=== PATIENT | female | born 2000 | race Caucasian/White ===

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

== ENCOUNTER 2023-02-11 03:06 | Inpatient (IN) | payer OTHER ==
[2023-02-11] MEDS ORDERED: METHYLERGONOVINE 0.2 MG/ML 1 ML AMP IM PRN (03:49)
[2023-02-11] MEDS ORDERED: miSOPROStoL 200 MCG TAB PO PRN (03:49)
[2023-02-11] MEDS ORDERED: OXYTOCIN 10 UNIT/ML 1 ML VIAL IM PRN (03:49)
[2023-02-11] MEDS ORDERED: TERBUTALINE 1 MG/ML VIAL SQ PRN (03:49)
[2023-02-11] MEDS ORDERED: CARBOPROST TROMETHAMINE 250 MCG/ML 1 ML AMP IM PRN (03:49)
[2023-02-11] MEDS ORDERED: TRANEXAMIC ACID IN NACL,ISO-OS 1,000 MG in EMPTY BAG 1 BAG IV PRN (03:49)
[2023-02-11] MEDS ORDERED: LIDOCAINE 0.5% (PF) 5 MG/ML (50 ML SDV) SQ PRN (03:49)
[2023-02-11] MEDS ORDERED: AMPICILLIN 2,000 MG in SODIUM CHLORIDE 0.9% 100 ML IVPB ONE (04:00)
[2023-02-11] MEDS ORDERED: OXYTOCIN 30 UNITS/500 ML NS 30 UNIT in SALINE 1 500ML.BAG IV SCH (04:00)
[2023-02-11 04:23] LABS: Basophils % (A) 0 %; Eosinophils # (A) 0.2 k/uL (0-0.7); Eosinophils % (A) 2 %; HCT 36.1 % (34.0-46.0); HGB 12.4 gm/dL (11.4-16.0); Lymphocytes # (A) 2.1 k/uL (1.0-4.8); Lymphocytes % (A) 19 %; MCH 32.4 pg (25.0-35.0); MCHC 34.3 g/dL (31.0-37.0); MCV 94.3 fL (80.0-100.0); Mean Platelet Volume 8.6; Monocytes # (A) 0.4 k/uL (0-1.0); Monocytes % (A) 3 %; Neutrophils # (A) 8.4 k/uL (1.3-7.7); Neutrophils % (A) 74 %; Platelet Count 252 k/uL (150-450); RBC 3.83 m/uL (3.80-5.40); WBC 11.3 k/uL (3.8-10.6)
[2023-02-11] MEDS: LACTATED RINGERS 1,000 ML IV SCH ×2 (04:23→06:31)
[2023-02-11] MEDS ORDERED: fentaNYL (PF) 50 MCG/ML 5 ML AMP ONE (06:50)
[2023-02-11] MEDS ORDERED: SODIUM CHLORIDE 0.9% 100 ML BAG ONE (06:50)
[2023-02-11] MEDS ORDERED: ROPIVACAINE 5 MG/ML 20 ML AMPULE ONE (06:50)
[2023-02-11] MEDS ORDERED: AMPICILLIN 1,000 MG in SODIUM CHLORIDE 0.9% 50 ML IVPB SCH (08:00)
--- NOTE | 2023-02-11 08:05 | P.HPOB ---
History of Present Illness H&P Date: 02/11/23 Chief Complaint: Spontaneous rupture of membranes This is a 22-year-old female 1 para 0 at 39 and one sevenths weeks who presents with spontaneous rupture membranes. She states she initially felt a gush of fluid at approximately 10 AM yesterday morning but then did not feel anything more until she woke up at about 1:30 AM with more gushes of fluid. She began feeling stronger contractions at this time also. She is feeling good movement. course has been essentially uncomplicated. labs: GC/chlamydia/Trichomonas-negative Hemoglobin-11.5 Random glucose-90 HIV-nonreactive Blood type-O+ Antibody screen-negative Toxoplasma screen-negative Rubella-immune Hepatitis B surface antigen-nonreactive Hepatitis C antibody-negative nonreactive Syphilis antibody-negative nonreactive 1 hour Glucola-115 Group B streptococcus-negative Obstetrical history: . Gynecologic history: No history of sexual transmitted diseases. Social history: She is single. She works as a caregiver. Review of Systems Constitutional: Denies chills, Denies fever Eyes: denies blurred vision, denies pain Ears, nose, mouth and throat: Denies headache, Denies sore throat Cardiovascular: Denies chest pain, Denies shortness of breath Respiratory: Denies cough Gastrointestinal: Reports abdominal pain Genitourinary: Reports pelvic pain, Reports Musculoskeletal: Reports low back pain Integumentary: Denies pruritus, Denies rash Neurological: Denies numbness, Denies weakness Psychiatric: Reports anxiety, Reports depression Past Medical History Past Medical History: Asthma History of Any Multi-Drug Resistant Organisms: None Reported Additional Past Surgical History / Comment(s): throat surgery-removal of growth as a child Past Anesthesia/Blood Transfusion Reactions: No Reported Reaction Past Psychological History: Anxiety, Depression Additional Psychological History / Comment(s): History of an inpatient stay due to suicidal ideation approximately 3-4 years ago Smoking Status: Never smoker Past Alcohol Use History: None Reported Past Drug Use History: Marijuana (History prior to ) - Past Family History Mother Family Medical History: Diabetes Mellitus Father Family Medical History: Hypertension Medications and Allergies Home Medications Medication Instructions Recorded Confirmed Type Vit No.179/Iron/Folic 1 tab PO DAILY 02/11/23 02/11/23 History [ Tablet] Allergies Allergy/AdvReac Type Severity Reaction Status Date / Time No Known Allergies Allergy Verified 02/11/23 03:34 Exam Osteopathic Statement: *. No significant issues noted on an osteopathic structural exam other than those noted in the History and Physical/Consult. Vital Signs Temp Pulse Resp BP Pulse Ox 02/11/23 03:34 97.2 F L 92 16 133/82 99 Intake and Output 02/10/23 02/11/23 02/11/23 22:59 06:59 14:59 Other: Weight 83.007 kg HEENT: Within normal limits Heart: Regular rate and rhythm Lungs: Clear to auscultation bilaterally Abdomen: heart tones: 140s, reactive, category 1 Cervix: On admission was 3 cm/80%/-2 station with positive amnisure with clear fluid noted. Currently cervix is 5-6 cm/90%/-2 station Contractions: Every 3-4 minutes Extremities: Negative Homans Results Result Diagrams: 02/11/23 04:10 Abnormal Lab Results - Last 24 Hours (Table) 02/11/23 Range/Units 04:10 WBC 11.3 H (3.8-10.6) k/uL Neutrophils # 8.4 H (1.3-7.7) k/uL Assessment and Plan (1) 39 weeks gestation of Current Visit: Yes Status: Acute Code(s): Z3A.39 - 39 WEEKS GESTATION OF SNOMED Code(s): 69357894 (2) Prolonged spontaneous rupture of membranes Current Visit: Yes Status: Acute Code(s): O42.90 - SEGUN ROM, 7TH0 BETW RUPT & ONST LABR, UNSP WEEKS OF GEST SNOMED Code(s): 139386087 Plan: Admission for active labor. Antibiotic prophylaxis secondary to possible prolonged rupture of membranes. Epidural anesthesia. Expectant management.
[2023-02-11] MEDS ORDERED: diphenhydrAMINE 25 MG CAP PO PRN (10:22)
[2023-02-11] MEDS ORDERED: diphenhydrAMINE 50 MG CAP PO PRN (10:22)
[2023-02-11] MEDS ORDERED: IBUPROFEN 600 MG TAB PO PRN (10:22)
[2023-02-11] MEDS ORDERED: HYDROCORTISONE 2.5% RECTAL CREAM 30 GM TUBE RECTAL PRN (10:22)
[2023-02-11] MEDS ORDERED: BENZOCAINE/MENTHOL SPRAY 1 GM/SPRAY AEROSOL TOPICAL PRN (10:22)
[2023-02-11] MEDS ORDERED: ZOLPIDEM 5 MG TAB PO PRN (10:22)
[2023-02-11] MEDS ORDERED: SIMETHICONE 80 MG CHEWABLE PO PRN (10:22)
[2023-02-11] MEDS ORDERED: diphenhydrAMINE 50 MG/ML 1 ML VIAL IVP PRN ×2 (10:22)
[2023-02-11] MEDS ORDERED: LANOLIN CREAM 5 GM TUBE TOPICAL PRN (10:22)
[2023-02-11] MEDS: ACETAMINOPHEN TAB 325 MG TAB PO PRN ×2 (10:49→21:22)
[2023-02-11 11:34] VITALS: RESP 16
--- NOTE | 2023-02-11 12:32 | P.PROBDLV ---
Vaginal Delivery Note - . Vaginal Delivery Note: The patient progressed to complete dilation after oxytocin augmentation of labor and spontaneous rupture of membranes. She was given 2 doses of ampicillin while in labor due to prolonged rupture of membranes. She did receive epidural anesthesia. Once reaching complete dilation she began pushing. Infant's head came to a crown. With one further push, the 's head delivered across the perineum followed by the anterior shoulder. Infant was then completely del ivered and placed on mother's abdomen. Cord was wrapped around one hand. Nose and mouth were bulb suctioned. A viable male infant was noted with scores of 9 at 1 minute and 9 at 5 minutes and infant weight of 6 lbs. 6 oz. Sent to delivered shortly thereafter, intact, with a three-vessel cord. Uterus contracted well after oxytocin was given and uterine massage was carried out. Inspection of the perineum revealed a left vaginal wall sulcus tear. This area was anesthetized with 1% lidocaine and then sutured with 3-0 Vicryl suture in a running locked fashion. Estimated blood loss was approximately 200 mL's. Mother and infant are in stable condition.
[2023-02-11] MEDS ORDERED: LORATADINE 10 MG TAB PO PRN (15:20)
[2023-02-11] MEDS: SENNOSIDES-DOCUSATE SODIUM 1 EACH TAB PO SCH (21:23)
[2023-02-12 07:41] LABS: Basophils % (A) 0 %; Eosinophils # (A) 0.1 k/uL (0-0.7); Eosinophils % (A) 1 %; HCT 31.6 % (34.0-46.0); HGB 10.8 gm/dL (11.4-16.0); Lymphocytes % (A) 26 %; MCH 31.6 pg (25.0-35.0); MCHC 34.3 g/dL (31.0-37.0); MCV 92.1 fL (80.0-100.0); Mean Platelet Volume 8.5; Monocytes # (A) 0.4 k/uL (0-1.0); Monocytes % (A) 3 %; Neutrophils % (A) 68 %; Platelet Count 209 k/uL (150-450); RBC 3.43 m/uL (3.80-5.40); RDW 13.3 % (11.5-15.5); WBC 11.8 k/uL (3.8-10.6)
[2023-02-12 07:55] VITALS: BP 103/61; PULSE 76; TEMP 97.9
--- NOTE | 2023-02-12 08:59 | P.DS ---
Providers Date of admission: 02/11/23 03:25 Expected date of discharge: 02/12/23 Attending physician: Oliva Darling Primary care physician: Stated None - Discharge Diagnosis(es) (1) 39 weeks gestation of Current Visit: Yes Status: Acute (2) Prolonged spontaneous rupture of membranes Current Visit: Yes Status: Acute Hospital Course: This is a 22-year-old 1 para 0 at 39 and one sevenths weeks who presented in active labor with possible prolonged rupture of membranes. She received IV antibiotics 2 doses while in labor and received oxytocin augmentation of labor. She delivered vaginally a viable male infant on 02/11/2023 with scores of 9 at 1 minute and 9 at 5 minutes and weight of 6 lbs. 6 oz. Her course has been uncomplicated. Lochia has been decreasing. She is breast-feeding. Vital signs are stable. Abdomen is soft with fundus firm and nontender. Extremities show negative Homans. Impression is status post vaginal delivery day #1. Plan is to discharge home today. Routine instructions are given. She is advised to follow up in the office in 6 weeks for check. She will be given a prescription for ibuprofen. She is advised to call the office if she has any further questions or concerns prior to her appointment time. Procedures: Oxytocin augmentation of labor Spontaneous vaginal delivery of a viable male on 02/11/2023 Patient Condition at Discharge: Stable Plan - Discharge Summary Discharge Rx Participant: No New Discharge Prescriptions: New Ibuprofen [Motrin] 600 mg PO Q6HR PRN #60 tab PRN Reason: Mild Pain (Scale 1 To 3) Continue Vit No.179/Iron/Folic [ Tablet] 1 tab PO DAILY busPIRone HCl [Buspar] 15 mg PO DAILY Discharge Medication List Vit No.179/Iron/Folic [ Tablet] 1 tab PO DAILY 02/11/23 [History] busPIRone HCl [Buspar] 15 mg PO DAILY 02/11/23 [History] Ibuprofen [Motrin] 600 mg PO Q6HR PRN #60 tab 02/12/23 [Rx] Follow up Appointment(s)/Referral(s): Oliva Darling DO [Doctor of Osteopathic Medicine] - 03/25/23 3:45 pm Activity/Diet/Wound Care/Special Instructions: Instructions 1. Do not begin any exercise program for 3 weeks. 2. Do not resume sexual relations for 3 weeks or longer if uncomfortable. 3. You may take tub baths or showers at any time. 4. You may use tampons if desired after 3 weeks. 5. Keep the area of episiotomy (stitches) clean and dry. 6. If you are not nursing, wear a good fitting, supportive bra during the day and limit fluid intake for at least 1 week to prevent breast engorgement. 7. Call the office, [phone], within the next week to make appointment for your 6 week checkup if it has not already been made. 8. Report any of the following occurrences to the doctor promptly: a. Heavy, excessive bleeding b. Chills, fever c. Burning or frequency of urination d. Pain or redness and breasts if nursing e. Increasing pain or swelling in episiotomy (stitches). In addition to the above instructions, the following additional should be followed: 1. No heavy lifting or straining (exercising) until after 6 week checkup. 2. Keep abdominal incision clean and dry: You may wear a dressing if more comfortable. 3. Make office appointment for 10 days after going home or as instructed by her doctor. Discharge Disposition: HOME SELF-CARE
[2023-02-12] MEDS ORDERED: busPIRone HCl 5 MG TAB PO SCH (09:00)
[2023-02-12] MEDS: SENNOSIDES-DOCUSATE SODIUM 1 EACH TAB PO SCH (10:59)
== END 2023-02-12 13:03 | disposition home or self-care (01) | DRG 807 ==
LOC: FBPOP 03:06 → 4FBP 03:25
PROVIDERS: ADMIT Obstetrics & Gynecology; ATTEND Obstetrics & Gynecology
PROC: 0KQM0ZZ Repair Perineum Muscle, Open Approach (ICD-10-PCS; principal; 2023-02-11)
PROC: 10E0XZZ Delivery of Products of Conception, External Approach (ICD-10-PCS; principal; 2023-02-11)
DX: O42.02 Full-term premature rupture of membranes, onset of labor within 24 hours of rupture (principal); Z37.0 Single live birth; O99.344 Other mental disorders complicating childbirth; F12.91 Cannabis use, unspecified, in remission; F32.A Depression, unspecified; Z28.310 Unvaccinated for COVID-19; Z3A.39 39 weeks gestation of pregnancy; F41.9 Anxiety disorder, unspecified; O70.1 Second degree perineal laceration during delivery; Z79.899 Other long term (current) drug therapy; Z91.51 Personal history of suicidal behavior
CPT/HCPCS: 85025; 86850; 86900; 86901; 88307

== ENCOUNTER 2024-01-12 15:02 | Outpatient (CLI) | payer BC, OTHER ==
[2024-01-12 16:22] LABS: Appearance,Urine Cloudy (Clear); Bacteria,Urine Many /hpf; Bilirubin,Urine Negative (Negative); Blood,Urine Negative (Negative); Calcium Oxalate Crystals,Urine Many /hpf; Color,Urine Orange; Glucose,Urine (UA) Negative (Negative); Ketones,Urine Negative (Negative); Leukocyte Esterase,Urine Large (Negative); Mucus,Urine Many /hpf; Nitrite,Urine Positive (Negative); PH, Urine 6.5 (5.0-8.0); Protein,Urine 1+ (Negative); RBC,Urine 6 /hpf (0-5); Squamous Epithelial Cell,Urine 64 /hpf (0-4); WBC,Urine 31 /hpf (0-5)
[2024-01-12 17:58] VITALS: BP 113/71; PULSE 86; RESP 16; TEMP 97.3
--- NOTE | 2024-02-18 19:30 | P.MSEPDOC ---
Presenting Problems - Arrival Data Date of Arrival on Unit: 01/12/24 Time of Arrival on Unit: 15:40 Mode of Transport: Ambulatory - Complaint OB-Reason for Admission/Chief Complaint: Other Comment: contx starting around 12 noon with alot of pressure. but gone now. urine cloudy at home. ? labor Medical History - Information : 2 Para: 1 Term: 1 : 0 Abortions: Spontaneous or Elective: 0 Number of Living Children: 0 - Gestational Age Gestational Age by JESSICA (wks/days): 31 Weeks and 6 Days - History Sexually Transmitted Diseases: HSV Comment: meds taking for herpes/ on antibiotics a month ago for sinsis infection Review of Systems - Review of Systems Constitutional: No problems Breast: No problems ENT: No problems Cardiovascular: No problems Respiratory: No problems Gastrointestinal: No problems Genitourinary: No problems Musculoskeletal: No problems Neurological: No problems Skin: No problems Vital Signs - Temperature Temperature: 97.3 F Temperature Source: Temporal Artery Scan - Pulse Right Radial Pulse Rate: 86 Pulse Assessment Method: Automatic Cuff - Respirations Respiratory Rate: 16 Oxygen Delivery Method: Room Air O2 Sat by Pulse Oximetry: 97 - Blood Pressure Right Arm Blood Pressure: 113/71 Blood Pressure Mean: 85 Blood Pressure Source: Automatic Cuff Medical Screen Scoring - Cervical Exam Dilation (cm): 0 Effacement (%): 0 Membranes: Intact - Uterine Contractions Intensity: Absent - Assessment - Baby A Baseline FHR: 130 Heart Rate - NICHD Category: Category I (Normal) NST: Reactive Physician Notification - Physician Notified Physician Notified Date: 01/12/24 Physician Notified Time: 16:45 Physician: Sayra Flower Order Received: Yes (discharge home with instructions and escribed antibiotic) Maternal Triage Index - Scheduled/Requesting Priority 5 Scheduled/Requesting Priority 5: Yes Criteria Met for Priority 5: cramping contx and "something coming out noon time" nothing now. cervix close thick and high. urine dark Disposition - Disposition OB Disposition: Physician follow up in office, Discharge to home, Written follow up instructions reviewed Discharge Date: 01/12/24 Discharge Time: 16:55 I agree with the RN Medical Screening Exam: No Physician's MSE Comment: incomplete documentation Case reviewed; plan agreed upon as documented in EMR&OBIX.: Yes Diagnosis: rule out labor
== END 2024-01-12 16:55 | disposition home or self-care (01) ==
LOC: FBPOP 15:02
PROVIDERS: ATTEND Obstetrics & Gynecology
DX: O47.03 False labor before 37 completed weeks of gestation, third trimester (principal); Z3A.31 31 weeks gestation of pregnancy
CPT/HCPCS: 59025; 81001; 99213

== ENCOUNTER 2024-01-16 23:31 | Outpatient (CLI) | payer BC, OTHER ==
[2024-01-17 01:28] VITALS: BP 126/74; PULSE 98; RESP 16; TEMP 97.2
--- NOTE | 2024-02-18 19:32 | P.MSEPDOC ---
Presenting Problems - Arrival Data Date of Arrival on Unit: 01/16/24 Time of Arrival on Unit: 23:31 Mode of Transport: Ambulatory - Complaint OB-Reason for Admission/Chief Complaint: Pain Comment: Pateint arrives to [facility] with complaint of contractions and back pain on and off throughout the day rated at a 7/10. Patient previously seen on 01/12/24 for bladder infection, currently on antibiotics but unsure what they are called. Medical History - Information : 2 Para: 1 Term: 1 : 0 Abortions: Spontaneous or Elective: 0 Number of Living Children: 1 - Gestational Age Gestational Age by JESSICA (wks/days): 32 Weeks and 4 Days - History Sexually Transmitted Diseases: HSV Comment: patient on acyclovir Review of Systems - Review of Systems Constitutional: No problems Breast: No problems ENT: No problems Cardiovascular: No problems Respiratory: No problems Gastrointestinal: No problems Genitourinary: No problems Musculoskeletal: No problems Neurological: No problems Skin: No problems Vital Signs - Temperature Temperature: 97.2 F Temperature Source: Oral - Pulse Right Brachial Pulse Rate: 98 Pulse Assessment Method: Automatic Cuff - Respirations Respiratory Rate: 16 Oxygen Delivery Method: Room Air O2 Sat by Pulse Oximetry: 98 - Blood Pressure Right Arm Blood Pressure: 126/74 Blood Pressure Mean: 91 Blood Pressure Source: Automatic Cuff Medical Screen Scoring - Cervical Exam Dilation (cm): 1 Station: -3 Membranes: Intact - Assessment - Baby A Baseline FHR: 130 Heart Rate - NICHD Category: Category I (Normal) NST: Reactive Physician Notification - Physician Notified Physician Notified Date: 01/17/24 Physician Notified Time: 00:20 Physician: Sayra Flower Order Received: Yes - Notification Comment Comment: Dr. Flower called with report on 32 01/24. Patient presents for contractions and back pain rated 7/10 starting at 11am. Currently being treated with antibiotics for a bladder infection since 01/11. Urine sample concentrated, no orders to send. Cat 1 FHT. No contractions per toco and abdomen soft. Vitals 126/74 97.2 98% 98 16. cervical exam 1//-3. Patient appears comfortable. Orders received to discharge home, encourage oral hydration, continue taking antibiotics as perscribed, and follow up with Dr. Kyle friday if symptoms continue. Maternal Triage Index - Maternal Triage Index Presenting for scheduled procedure w/no complaint: No - Non-Urgent/Priority 4 Non-Urgent Priority 4: Yes Criteria Met for Priority 4: pain Disposition - Disposition OB Disposition: Discharge to home Discharge Date: 01/17/24 Discharge Time: 00:30 I agree with the RN Medical Screening Exam: Yes Case reviewed; plan agreed upon as documented in EMR&OBIX.: Yes Diagnosis: rule out labor
== END 2024-01-17 00:30 ==
LOC: FBPOP 23:31
PROVIDERS: ATTEND Obstetrics & Gynecology
DX: O47.03 False labor before 37 completed weeks of gestation, third trimester (principal); O98.313 Other infections with a predominantly sexual mode of transmission complicating pregnancy, third trimester; B00.89 Other herpesviral infection; A60.09 Herpesviral infection of other urogenital tract; O26.893 Other specified pregnancy related conditions, third trimester; M54.50 Low back pain, unspecified; Z3A.32 32 weeks gestation of pregnancy; Z79.899 Other long term (current) drug therapy
CPT/HCPCS: 59025; 99213

== ENCOUNTER 2024-02-06 19:45 | Outpatient (CLI) | payer BC, OTHER ==
[2024-02-06 20:32] LABS: Appearance,Urine Cloudy (Clear); Bacteria,Urine Many /hpf; Bilirubin,Urine Negative (Negative); Blood,Urine Negative (Negative); Color,Urine Light Yellow; Glucose,Urine (UA) Negative (Negative); Ketones,Urine Negative (Negative); Leukocyte Esterase,Urine Large (Negative); Mucus,Urine Occasional /hpf; Nitrite,Urine Positive (Negative); PH, Urine 6.5 (5.0-8.0); Protein,Urine Negative (Negative); RBC,Urine 3 /hpf (0-5); Specific Gravity,Urine 1.016 (1.001-1.035); Squamous Epithelial Cell,Urine 4 /hpf (0-4); Urobilinogen,Urine <2.0 mg/dL (<2.0); WBC,Urine 8 /hpf (0-5)
[2024-02-06] MEDS: ACETAMINOPHEN TAB 325 MG TAB PO STA (21:05)
[2024-02-06 21:33] VITALS: BP 122/80; PULSE 95; RESP 16; TEMP 97.4
--- NOTE | 2024-03-22 09:06 | P.MSEPDOC ---
Presenting Problems - Arrival Data Date of Arrival on Unit: 02/06/24 Time of Arrival on Unit: 19:45 Mode of Transport: Ambulatory - Complaint OB-Reason for Admission/Chief Complaint: Pain, Dizziness Medical History - Information : 2 Para: 1 Term: 1 : 0 Abortions: Spontaneous or Elective: 0 Number of Living Children: 1 - Gestational Age Gestational Age by JESSICA (wks/days): 35 Weeks and 3 Days - History Sexually Transmitted Diseases: HSV Review of Systems - Review of Systems Constitutional: No problems Breast: No problems ENT: No problems Cardiovascular: No problems Respiratory: No problems Gastrointestinal: No problems Genitourinary: No problems Musculoskeletal: No problems Neurological: No problems Skin: No problems Vital Signs - Temperature Temperature: 97.4 F Temperature Source: Oral - Pulse Right Brachial Pulse Rate: 95 Pulse Assessment Method: Automatic Cuff - Respirations Respiratory Rate: 16 Oxygen Delivery Method: Room Air O2 Sat by Pulse Oximetry: 98 - Blood Pressure Right Arm Blood Pressure: 122/80 Blood Pressure Mean: 94 Blood Pressure Source: Automatic Cuff Medical Screen Scoring - Cervical Exam Dilation (cm): 1.5 Effacement (%): 50 Station: -3 Membranes: Intact - Assessment - Baby A Baseline FHR: 120 Heart Rate - NICHD Category: Category I (Normal) NST: Reactive Physician Notification - Physician Notified Physician Notified Date: 02/06/24 Physician Notified Time: 20:56 Physician: Chaparrita Arango New Order Received: Yes - Notification Comment Comment: Patient presents to [facility] for back pain, dizziness, headache, and excessive movement. Cat 1 tracing and reactive NST. No contractions per toco or palpation. U/A and vitals reviewed. Patient to be discharged home after 650mg of Tylenol is given, oral hydration, and antibiotics sent to [facility]. Maternal Triage Index - Stat/Priority 1 Stat Priority 1: No - Urgent/Priority 2 Urgent Priority 2: No - Prompt/Priority 3 Prompt Priority 3: No - Non-Urgent/Priority 4 Non-Urgent Priority 4: Yes Criteria Met for Priority 4: 35 3/7 dizziness headache back pain Disposition - Disposition OB Disposition: Discharge to home Discharge Date: 02/06/24 Discharge Time: 21:02 I agree with the RN Medical Screening Exam: Yes Case reviewed; plan agreed upon as documented in EMR&OBIX.: Yes Diagnosis: RELATED CONDITIONS, UNSPECIFIED, THIRD TRIMESTER
== END 2024-02-06 21:10 ==
LOC: FBPOP 19:45
PROVIDERS: ATTEND Obstetrics & Gynecology Obstetrics
DX: O26.893 Other specified pregnancy related conditions, third trimester (principal); O99.891 Other specified diseases and conditions complicating pregnancy; M54.9 Dorsalgia, unspecified; R42 Dizziness and giddiness; R51.9 Headache, unspecified; O98.313 Other infections with a predominantly sexual mode of transmission complicating pregnancy, third trimester; A60.09 Herpesviral infection of other urogenital tract; B00.89 Other herpesviral infection; Z3A.35 35 weeks gestation of pregnancy
CPT/HCPCS: 59025; 81001; 99213

== ENCOUNTER 2024-03-03 09:15 | Inpatient (IN) | payer BC, OTHER ==
[2024-02-26 10:41] VITALS: BMI 35.3
[2024-03-03] MEDS ORDERED: METHYLERGONOVINE 0.2 MG/ML 1 ML AMP IM PRN ×2 (09:42→09:44)
[2024-03-03] MEDS ORDERED: CARBOPROST TROMETHAMINE 250 MCG/ML 1 ML AMP IM PRN ×2 (09:42→09:44)
[2024-03-03] MEDS ORDERED: LIDOCAINE 0.5% (PF) 5 MG/ML (50 ML SDV) SQ PRN (09:42)
[2024-03-03] MEDS ORDERED: miSOPROStoL 200 MCG TAB PO PRN ×2 (09:42→09:44)
[2024-03-03] MEDS ORDERED: OXYTOCIN 10 UNIT/ML 1 ML VIAL IM PRN ×2 (09:42→09:44)
[2024-03-03] MEDS ORDERED: TRANEXAMIC 1,000 MG/100ML-NACL 1,000 MG in EMPTY BAG 1 BAG IV PRN ×2 (09:42→09:44)
[2024-03-03] MEDS ORDERED: TERBUTALINE 1 MG/ML VIAL SQ PRN (09:42)
[2024-03-03] MEDS: LACTATED RINGERS 1,000 ML IV SCH ×2 (09:56→16:30)
[2024-03-03 10:10] LABS: Basophils % (A) 0 %; Eosinophils # (A) 0.1 k/uL (0-0.7); Eosinophils % (A) 1 %; HCT 35.3 % (34.0-46.0); HGB 11.8 gm/dL (11.4-16.0); Lymphocytes # (A) 1.7 k/uL (1.0-4.8); Lymphocytes % (A) 14 %; MCH 32.4 pg (25.0-35.0); MCHC 33.5 g/dL (31.0-37.0); MCV 96.6 fL (80.0-100.0); Mean Platelet Volume 8.7; Monocytes # (A) 0.4 k/uL (0-1.0); Monocytes % (A) 3 %; Neutrophils # (A) 9.6 k/uL (1.3-7.7); Neutrophils % (A) 80 %; Platelet Count 228 k/uL (150-450); RBC 3.65 m/uL (3.80-5.40); RDW 13.4 % (11.5-15.5)
[2024-03-03] MEDS: CITRIC ACID-SODIUM CITRATE 15 ML CUP PO ONE (11:54)
--- NOTE | 2024-03-03 12:08 | P.HPOB ---
History of Present Illness H&P Date: 03/03/24 Chief Complaint: Scheduled section Ms. Abraham is a 23 year old at 39 weeks and 1 day with EDC of 03/09/2024 by 16 week US who presents for scheduled section for breech presentation. The has been complicated by maternal anxiety and depression for which the patient takes Buspar. Additionally, the patient had a primary herpes outbreak at 25 weeks and a repeat outbreak at 33 weeks. She has been on antiviral prophlyaxis since about 34 weeks. The fetus is estimated in the 395ile based on a 32 week growth US. Obstetric history: 1 FTVD work-up: blood type O positive, antibody screen negative, rubella non- immune, VDRL non-reactive, HBsAg negative, HIV negative, HCV Ab non-reactive, gonorrhea negative, chlamydia negative, 1 hour GTT within normal limits. GBS unknown/not collected 2/2 missed appointments. Past Medical History Past Medical History: Asthma, Skin Disorder Additional Past Medical History / Comment(s): Hiatal hernia. Ezcema. History of Any Multi-Drug Resistant Organisms: None Reported Past Surgical History: No Surgical Hx Reported Additional Past Surgical History / Comment(s): Throat surgery-removal of growth as a child. Past Anesthesia/Blood Transfusion Reactions: No Reported Reaction Additional Past Anesthesia/Blood Transfusion Reaction / Comment(s): Mom allergic to drape. Past Psychological History: Anxiety, Depression Additional Psychological History / Comment(s): History of an inpatient stay due to suicidal ideation approximately 3-4 years ago. Smoking Status: Never smoker Past Alcohol Use History: None Reported Past Drug Use History: Marijuana Additional Drug Use History / Comment(s): No Marijuana in 1 year. - Past Family History Mother Family Medical History: Diabetes Mellitus Additional Family Medical History / Comment(s): "Blood clot disorder." Father Family Medical History: Hypertension Medications and Allergies Home Medications Medication Instructions Recorded Confirmed Type Vit No.179/Iron/Folic 1 tab PO DAILY 02/11/23 03/03/24 History [ Tablet] Acyclovir 200 mg PO AC-BID 01/12/24 03/03/24 History Loratadine [Claritin] 10 mg PO DAILY 01/16/24 03/03/24 History Sertraline [Zoloft] 25 mg PO DAILY 02/06/24 03/03/24 History Inhaler (Unknown Name/Dose) 1 puff INHALATION DIRECTED PRN 02/26/24 03/03/24 History Allergies Allergy/AdvReac Type Severity Reaction Status Date / Time No Known Allergies Allergy Verified 03/03/24 09:39 Exam Vital Signs Temp Pulse Resp BP Pulse Ox 03/03/24 09:39 97.4 F L 89 18 134/92 99 Intake and Output 03/02/24 03/03/24 03/03/24 22:59 06:59 14:59 Other: Weight 87.543 kg Focused physical exam is performed. This is a healthy-appearing in no apparent distress. Breathing is non-labored. Abdomen is gravid and non-tender. Cervical exam is deferred. Extremities non-tender and non-edematous. heart tones are Category I and tocometer is not graphing contractions. Results Result Diagrams: 03/03/24 09:40 Abnormal Lab Results - Last 24 Hours (Table) 03/03/24 Range/Units 09:40 WBC 12.0 H (3.8-10.6) k/uL RBC 3.65 L (3.80-5.40) m/uL Neutrophils # 9.6 H (1.3-7.7) k/uL Assessment and Plan Assessment: 23 year old at 39 weeks and 1 days presenting for scheduled section with bilateral salpingectomy 2/2 breech presentation Plan: Admit, NPO, protocol initiated. The risks, benefits, and alternatives to section were discussed with the patient including risk of bleeding, infection, damage to surrounding structures including bladder/bowels/ureters, and post-operative VTE. The patient understands these risks and desires to proceed with section. Reviewed r/b/a to permanent contraception including the fact that it is non-reversible and she will never again be able to conceive without IVF. Pt understands and desires to proceed.
[2024-03-03] MEDS ORDERED: ONDANSETRON 4 MG/2 ML VIAL ONE (12:11)
[2024-03-03] MEDS ORDERED: OXYTOCIN 30 UNITS/500 ML NS BAG IV ONE (12:11)
[2024-03-03] MEDS ORDERED: MORPHINE SULFATE (PF) 0.3 MG/0.3 ML SYR ONE (12:11)
[2024-03-03] MEDS ORDERED: KETOROLAC 15 MG/ML 1 ML VIAL ONE (12:11)
--- NOTE | 2024-03-03 13:11 | P.OP ---
Date of Procedure: 03/03/24 Preoperative Diagnosis: 1. Term IUP at 39 weeks 2. Breech Presentation 3. Family Planning 4. Risk Reduction Postoperative Diagnosis: Same Procedure(s) Performed: Primary Lower Transverse Section with Bilateral Salpingectomy Implants: None Anesthesia: spinal Surgeon: Tiarra Kyle Field Advisor #1: Chaparrita Arango Estimated Blood Loss (ml): 467 IV fluids (ml): 600 Urine output (ml): 100 (clear) Pathology: none sent Condition: stable Disposition: floor Indications for Procedure: Ms. Abraham is a 23 year old at 39 weeks and 1 day presenting for scheduled for breech presentation with bilateral salpingectomy for permanent contraception. The risks, benefits, and alternatives to section were discussed with the patient including risk of bleeding, infection, damage to surrounding structures including bladder/bowels/ureters, and post- operative VTE. The patient understands these risks and desires to proceed with section. The r/b/a of bilateral salpingectomy are discussed with the patient including the fact that it is non-reversible and the patient will never be able to get again without IVF. Operative Findings: Clear amniotic fluid. Viable male in complete breech presentation. Apgars 7/9, weight 7 pounds and 14 ounces (3580 grams). Normal uterus, bilateral fallopian tubes, and ovaries. Description of Procedure: The patient was taken to the operating room where spinal anesthesia was found to be adequate. Two grams of Ancef were given for infection prophylaxis. She was prepared and draped in the dorsal supine position with a leftward tilt. A Pfannenstiel skin incision was made with the scalpel. The incision was carried down to the fascia with a bovie. The fascia was incised and extended laterally with Fritz scissors. The superior aspect of the fascia was grasped with Deann clamps. The underlying rectus muscle was dissected off sharply with Fritz scissors. In a similar fashion, the inferior aspect of the fascia was elevated with Deann clamps and the rectus muscle and pyramidalis were dissected off. Excellent hemostasis was achieved with the bovie. The rectus muscle was in the midline down to the level of the pubic symphysis. Pre- peritoneal fatty tissue was bluntly dissected to expose the peritoneum. The peritoneum was found to be free of adherent bowel and entered sharply with Fritz scissors. The peritoneal incision was extended superiorly and inferiorly to the bladder reflection with good visualization of the bladder. The bladder blade was inserted and vesicouterine peritoneum was identified. Intraabdominal survey revealed scant, clear peritoneal fluid and the thinned-out lower uterine segment. The vesicouterine peritoneum was opened with scissors and the bladder flap was developed. The bladder blade was repositioned to keep the bladder out of the operative field. The lower uterine segment was incised with a scalpel. The amniotic sac was ruptured with an Allis clamp and clear fluid was noted. The uterine incision was extended bluntly with lateral and upward traction. The fetus was in complete breech position. The buttocks was palpated and delivered gradually through the hysterotomy. Fundal pressure was continued and both legs were extended using the Pinard maneuver. With gentle pressure the legs and body gradually delivered. Once the scapula could be seen the baby was gently rotated and both arms were delivered using the Loveseat maneuver. Maintaining head flexion in a modified Dqdowtzb-[id number]-fijm maneuver the head was delivered without difficulty. The mouth and nose were suctioned with a bulb. The cord was clamped and cut. was noted to be spontaneously crying. The was handed off to the wood milling machine operator. IV oxytocin was initiated to facilitate uterine contractions. The placenta was delivered intact with manual massage of uterine fundus. The uterus was then exteriorized and the inside of the uterus was gently wiped with a lap sponge to assure complete removal of placental membranes. The uterine incision was closed with a 0-Polysorb suture in a running locked fashion. A second imbricating layer of 0-Polysorb was placed along the incision. The ovaries and tubes were found to be normal. The Ligasure device was then used to sequentially cauterize and cut the right fallopian tube from the fimbriated end to the level of the uterine cornua. This was repeated on the left side. The uterus and ovaries were then gently returned to the abdominal cavity. The blood clots and fluid were wiped out of the abdomen and pelvis with moist laparotomy sponges. The pelvis was copiously suction irrigated.The uterine incision was reinspected and excellent hemostasis was noted. The fascial layer was closed with a 0-Vicryl suture. The subcutaneous tissue was reapproximated with 2-0 Plain Gut. The skin was closed with 4-0 Monocryl in a subcuticular fashion. The patient tolerated the procedure well. All the counts were correct times two. The patient was taken to the recovery room in a stable condition.
[2024-03-03] MEDS: OXYTOCIN 30 UNITS/500 ML NS 30 UNIT in SALINE 1 500ML.BAG IV SCH (13:23)
[2024-03-03] MEDS ORDERED: ONDANSETRON 4 MG/2 ML VIAL IVP PRN (16:09)
[2024-03-03] MEDS ORDERED: diphenhydrAMINE 50 MG/ML 1 ML VIAL IVP PRN (16:09)
[2024-03-03] MEDS ORDERED: METOCLOPRAMIDE 5 MG/ML 2 ML VIAL IVP PRN (16:09)
[2024-03-03] MEDS ORDERED: diphenhydrAMINE 25 MG CAP PO PRN (16:09)
[2024-03-03] MEDS ORDERED: diphenhydrAMINE 50 MG CAP PO PRN (16:09)
[2024-03-03] MEDS ORDERED: ZOLPIDEM 5 MG TAB PO PRN (16:09)
[2024-03-03] MEDS ORDERED: NALOXONE 0.4 MG/ML 1 ML VIAL IV PRN (16:09)
[2024-03-03] MEDS: ACETAMINOPHEN TAB 500 MG TAB PO SCH (16:22)
[2024-03-03] MEDS: diphenhydrAMINE 50 MG/ML 1 ML VIAL IVP PRN (16:30)
[2024-03-03] MEDS: IBUPROFEN 600 MG TAB PO SCH (22:29)
[2024-03-03] MEDS: SENNOSIDES-DOCUSATE SODIUM 1 EACH TAB PO SCH (22:30)
--- NOTE | 2024-03-04 08:20 | P.PN ---
Progress Note - Text Adequate analgesia. No complication from intrathecal Duramorph.
--- NOTE | 2024-03-04 08:59 | P.PNOBGPC ---
Subjective - Subjective Principal diagnosis: s/p primary section for breech presentation Interval history: The patient is doing well this morning and had no acute events overnight. She has no complaints this morning. She reports minimal lochia, passing flatus, voiding without difficulty, ambulating, and eating/drinking without nausea or vomiting. She is formula feeding her without difficulty. She denies chest pain, shortness of breathing, fevers, or chills overnight. She denies pain or swelling in the legs. Patient reports: Reports appetite normal, Reports voiding normally, Reports pain well controlled, Reports ambulating normally [place]: doing well Objective - Vital Signs Latest vital signs: Vital Signs Temp Pulse Resp BP Pulse Ox 03/04/24 08:25 97.5 F L 75 18 132/83 99 03/04/24 04:49 98.1 F 74 16 110/71 98 03/04/24 00:00 98.3 F 71 16 107/69 97 03/03/24 20:00 98.4 F 77 16 114/68 98 03/03/24 16:00 97.9 F 79 16 119/76 100 03/03/24 15:06 96.4 F L 68 16 125/80 100 03/03/24 14:51 95 16 121/78 100 03/03/24 14:36 97.0 F L 59 L 16 120/77 100 03/03/24 14:21 60 16 115/70 100 03/03/24 14:06 97.0 F L 75 16 118/79 100 03/03/24 13:51 96.3 F L 65 18 114/72 100 03/03/24 13:34 96.6 F L 68 16 114/62 99 03/03/24 13:21 96.8 F L 83 18 133/66 100 03/03/24 13:06 97.2 F L 86 18 109/65 99 03/03/24 09:39 97.4 F L 89 18 134/92 99 Intake and Output 03/03/24 03/04/24 03/04/24 22:59 06:59 14:59 Output Total 377 700 600 Balance -377 -700 -600 Output: Urine 300 700 600 Straight 700 Uretheral ([place]) 100 Output, Quantitative 77 Blood Loss Other: Voiding Method Indwelling Catheter # Voids 1 - Exam Extremities: Present: normal Abdomen: Present: normal appearance, soft Incision: Present: normal, dry, intact Uterus: Present: normal, firm - Labs Labs: Abnormal Lab Results - Last 24 Hours (Table) 03/03/24 Range/Units 09:40 WBC 12.0 H (3.8-10.6) k/uL RBC 3.65 L (3.80-5.40) m/uL Neutrophils # 9.6 H (1.3-7.7) k/uL Assessment and Plan Assessment: 23 year old now POD#1 s/p primary section for breech presentation Plan: 1. Postoperative. Patient meeting all postoperative milestones appropriately. 2. Viable male infant. Doing well at bedside. Formula feeding. Will need circumcision tomorrow AM. Dispo: Anticipate discharge home tomorrow.
[2024-03-04 09:09] LABS: Basophils % (A) 0 %; Eosinophils # (A) 0.1 k/uL (0-0.7); Eosinophils % (A) 1 %; HCT 31.6 % (34.0-46.0); HGB 10.8 gm/dL (11.4-16.0); Lymphocytes # (A) 2.1 k/uL (1.0-4.8); Lymphocytes % (A) 18 %; MCH 33.5 pg (25.0-35.0); MCHC 34.2 g/dL (31.0-37.0); Mean Platelet Volume 9.5; Monocytes # (A) 0.4 k/uL (0-1.0); Monocytes % (A) 4 %; Neutrophils # (A) 8.7 k/uL (1.3-7.7); Neutrophils % (A) 76 %; Platelet Count 216 k/uL (150-450); RBC 3.22 m/uL (3.80-5.40); RDW 13.8 % (11.5-15.5); WBC 11.4 k/uL (3.8-10.6)
[2024-03-04] MEDS ORDERED: LORATADINE 10 MG TAB PO PRN (15:00)
[2024-03-04] MEDS: SERTRALINE 25 MG TAB PO SCH (15:26)
[2024-03-04] MEDS: MEASLES-MUMPS-RUBELLA VACC/PF 12,500 UNIT/0.5 ML VIAL SQ ONE (15:27)
[2024-03-05 07:37] VITALS: RESP 14
[2024-03-05] MEDS: PRENATAL VIT-IRON-FOLIC ACID 1 EACH TABLET PO SCH (09:07)
[2024-03-05 10:30] VITALS: BP 123/85; PULSE 72; TEMP 97.9
--- NOTE | 2024-03-05 11:15 | P.DS ---
Providers Date of admission: 03/03/24 09:15 Expected date of discharge: 03/05/24 Attending physician: Tiarra Kyle MD Primary care physician: Stated None Hospital Course: Ms. Abraham is a 23 year old now POD#2 s/p Primary section with Bilateral Salpingectomy 2/2 breech presentation. The patient is doing well this morning and had no acute events overnight. She has no complaints this morning. She reports minimal lochia, passing flatus, voiding without difficulty, ambulating, and eating/drinking without nausea or vomiting. Infant doing well at bedside, s/p circumcision. She denies chest pain, shortness of breathing, fevers, or chills overnight. She denies pain or swelling in the legs. Postoperative restrictions are reviewed with the patient including pelvic rest for 6 weeks, no lifting heavier than 15 pounds for 6 weeks. The patient is encouraged to call the office if she experiences any heavy bleeding, foul- smelling discharge, breast complaints, or any if she has any other concerns. She will follow up in the office with in 2 weeks for postoperative exam. She will go home with Motrin and Tylenol. Patient declines Oxycodone at this time. All questions are answered. Assessment: 23 year old now POD#2 s/p primary section with bilateral salpingectomy Patient Condition at Discharge: Good Plan - Discharge Summary Discharge Rx Participant: Yes New Discharge Prescriptions: New Ibuprofen [Motrin] 600 mg PO Q6HR PRN #30 tab PRN Reason: Mild Pain (Scale 1 To 3) Acetaminophen Tab [Tylenol] 650 mg PO Q6H PRN #30 tab PRN Reason: Mild Pain (Scale 1 To 3) No Action Vit No.179/Iron/Folic [ Tablet] 1 tab PO DAILY Acyclovir 200 mg PO AC-BID Loratadine [Claritin] 10 mg PO DAILY Sertraline [Zoloft] 25 mg PO DAILY Inhaler (Unknown Name/Dose) 1 puff INHALATION DIRECTED PRN PRN Reason: Shortness Of Breath Discharge Medication List Vit No.179/Iron/Folic [ Tablet] 1 tab PO DAILY 02/11/23 [History] Acyclovir 200 mg PO AC-BID 01/12/24 [History] Loratadine [Claritin] 10 mg PO DAILY 01/16/24 [History] Sertraline [Zoloft] 25 mg PO DAILY 02/06/24 [History] Inhaler (Unknown Name/Dose) 1 puff INHALATION DIRECTED PRN 02/26/24 [History] Acetaminophen Tab [Tylenol] 650 mg PO Q6H PRN #30 tab 03/05/24 [Rx] Ibuprofen [Motrin] 600 mg PO Q6HR PRN #30 tab 03/05/24 [Rx] Follow up Appointment(s)/Referral(s): Tiarra Kyle MD [STAFF PHYSICIAN] - 04/14/24 1:15 pm (Post C/S appointment 03-16-2024 at 2:15pm) Activity/Diet/Wound Care/Special Instructions: Instructions 1. Do not begin any exercise program for 3 weeks. 2. Do not resume sexual relations for 6 weeks or longer if uncomfortable. 3. You may take tub baths or showers at any time. 4. You may use tampons if desired after 6 weeks. 5. Keep any areas repaired with stitches clean and dry. 6. If you are not nursing, wear a good fitting, supportive bra during the day and limit fluid intake for at least 1 week to prevent breast engorgement. 7. Call the office, , within the next week to make appointment for your 6 week checkup if it has not already been made. 8. Report any of the following occurrences to the doctor promptly: a. Heavy, excessive bleeding b. Chills, fever c. Burning or frequency of urination d. Pain or redness and breasts if nursing e. Increasing pain or swelling of vulva (stitches). In addition to the above instructions, the following additional should be followed: 1. No heavy lifting or straining (exercising) until after 6 week checkup. 2. Keep abdominal incision clean and dry: You may wear a dressing if more comfortable. 3. Make office appointment for 2 weeks after delivery date. Discharge Disposition: HOME SELF-CARE
[2024-03-05] MEDS: FERROUS SULFATE 325 MG TAB PO SCH (15:24)
== END 2024-03-05 15:45 | disposition home or self-care (01) | DRG 785 ==
LOC: 4FBP 09:15
PROVIDERS: ADMIT Obstetrics & Gynecology; ATTEND Obstetrics & Gynecology
PROC: 0UB70ZZ Excision of Bilateral Fallopian Tubes, Open Approach (ICD-10-PCS; 2024-03-03)
PROC: 10D00Z1 Extraction of Products of Conception, Low, Open Approach (ICD-10-PCS; principal; 2024-03-03 12:00)
DX: O32.1XX0 Maternal care for breech presentation, not applicable or unspecified (principal); Z3A.39 39 weeks gestation of pregnancy; Z79.899 Other long term (current) drug therapy; Z82.49 Family history of ischemic heart disease and other diseases of the circulatory system; J45.909 Unspecified asthma, uncomplicated; O99.52 Diseases of the respiratory system complicating childbirth; O99.344 Other mental disorders complicating childbirth; F41.9 Anxiety disorder, unspecified; F32.A Depression, unspecified; A60.00 Herpesviral infection of urogenital system, unspecified; Z37.0 Single live birth
CPT/HCPCS: 85025; 86850; 86900; 86901; 88302; 90707